=== PATIENT | female | born 1980 | race African-American/Black ===

== ENCOUNTER 2017-10-29 19:41 | Emergency (ER) | payer MEDICAID, OTHER ==
[~2017-10-29] VITALS: Ht 172.7 cm; Wt 87.0 kg
[2017-10-29] MEDS ORDERED: METOCLOPRAMIDE HCL 10MG/2ML VIAL IV STA (20:06)
[2017-10-29] MEDS ORDERED: KETOROLAC 30MG/ML VIAL IV STA (20:06)
[2017-10-29] MEDS ORDERED: SODIUM CHLORIDE 0.9% 1,000 ML IV ONE (20:06)
[2017-10-29] MEDS ORDERED: ONDANSETRON HCL 4MG/2ML VIAL IV STA (20:06)
[2017-10-29 20:36] LABS: BASOPHILS % 0.3 % (0.0-2.0); EOSINOPHILS % 0.1 % (0.0-5.0); HEMOGLOBIN. 14.2 g/dL (12.0-16.0); LYMPHOCYTES % 35.4 % (20.0-50.0); MEAN CORPUSCULAR HEMOGLOBIN 27.6 pg (28.0-32.0); MEAN CORPUSCULAR VOLUME 81.9 fL (81.0-99.0); MEAN PLATELET VOLUME 8.6 fl (7.4-10.4); MONOCYTES % 7.3 % (2.0-8.0); NEUTROPHILS % 56.9 % (40.0-76.0); PLATELET 220 x1000/uL (130-400); RED BLOOD CELL COUNT 5.13 mill/uL (4.2-5.4); RED CELL DISTRIBUTION WIDTH 13.8 % (11.6-14.6)
[2017-10-29 20:44] LABS: INR 1.1
[2017-10-29 20:46] LABS: CHLORIDE 109 mEq/L (98-107)
[2017-10-29 21:10] LABS: CLARITY URINE CLOUDY (CLEAR); COLOR URINE YELLOW (YELLOW); KETONES URINE NEGATIVE (NEGATIVE); LEUKOCYTE ESTERASE URINE NEGATIVE (NEGATIVE); NITRITE URINE NEGATIVE (NEGATIVE); OCCULT BLOOD URINE NEGATIVE (NEGATIVE); PH URINE 7.5 (4.5-8.0); PROTEIN URINE 1+ (NEGATIVE); SPECIFIC GRAVITY URINE 1.026 (1.005-1.030)
[2017-10-30] MEDS ORDERED: ONDANSETRON HCL 4MG/2ML VIAL IV SCH (00:30)
[2017-10-30] MEDS ORDERED: KETOROLAC 30MG/ML VIAL IV SCH (00:30)
[2017-10-30 06:02] VITALS: BP 97/56
== END 2017-10-30 06:15 | disposition home or self-care (01) ==
LOC: ER 19:41
DX: R10.9 Unspecified abdominal pain (principal); N83.201 Unspecified ovarian cyst, right side; Z88.8 Allergy status to other drugs, medicaments and biological substances; Z98.51 Tubal ligation status
CPT/HCPCS: 36415; 76830; 76856; 80053; 81003; 85025; 85610; 96361; 96374; 96375; 99285; J1885; J2405; J2765; J7030; Z7610

== ENCOUNTER 2021-03-28 01:00 | Emergency (ER) | payer OTHER ==
[~2021-03-28] VITALS: Ht 172.7 cm; Wt 90.0 kg
[2021-03-28 01:41] LABS: CLARITY URINE CLEAR (CLEAR); COLOR URINE YELLOW (YELLOW); KETONES URINE NEGATIVE (NEGATIVE); LEUKOCYTE ESTERASE URINE NEGATIVE (NEGATIVE); NITRITE URINE NEGATIVE (NEGATIVE); OCCULT BLOOD URINE 3+ (NEGATIVE); PROTEIN URINE NEGATIVE (NEGATIVE); SPECIFIC GRAVITY URINE 1.024 (1.005-1.030)
[2021-03-28 03:07] LABS: BASOPHILS % 0.2 % (0.0-2.0); EOSINOPHILS % 0.6 % (0.0-5.0); HEMATOCRIT. 38.8 % (36.0-48.0); HEMOGLOBIN. 12.7 g/dL (12.0-16.0); LYMPHOCYTES % 27.3 % (20.0-50.0); MEAN CORPUSCULAR HEMOGLOBIN 27.5 pg (28.0-32.0); MEAN CORPUSCULAR VOLUME 84.3 fL (81.0-99.0); MONOCYTES % 7.3 % (2.0-8.0); NEUTROPHILS % 64.6 % (40.0-76.0); PLATELET 193 x1000/uL (130-400); RED CELL DISTRIBUTION WIDTH 14.3 % (11.6-14.6)
[2021-03-28 03:14] LABS: CHLORIDE 111 mEq/L (98-107)
[2021-03-28 04:17] LABS: B-HCG QUANTITATIVE 698 mIU/mL (<3)
[2021-03-28 05:10] VITALS: BP 137/79
== END 2021-03-28 05:10 | disposition home or self-care (01) ==
LOC: ER 01:00
DX: O20.9 Hemorrhage in early pregnancy, unspecified (principal); Z3A.00 Weeks of gestation of pregnancy not specified; Z98.51 Tubal ligation status; Z91.041 Radiographic dye allergy status
CPT/HCPCS: 36415; 76830; 76856; 80053; 81003; 81025; 84702; 85025; 86850; 86900; 99284

== ENCOUNTER 2024-05-14 11:36 | Emergency (ER) | payer OTHER ==
[~2024-05-14] VITALS: Ht 177.8 cm; Wt 85.0 kg
[2024-05-14 11:38] VITALS: O2SAT 98
[2024-05-14 12:28] VITALS: BP 120/78; PULSE 74; RESP 18; TEMP 36.94740; O2SAT 98
== END 2024-05-14 12:32 | disposition home or self-care (01) ==
LOC: ER 11:36
DX: M79.672 Pain in left foot (principal); R20.2 Paresthesia of skin; Z98.51 Tubal ligation status; Z91.041 Radiographic dye allergy status; Z88.8 Allergy status to other drugs, medicaments and biological substances
CPT/HCPCS: 99281

== ENCOUNTER 2025-06-10 13:39 | Emergency (ER) | payer OTHER ==
[~2025-06-10] VITALS: Ht 172.7 cm; Wt 94.0 kg
[2025-06-10 13:44] VITALS: O2SAT 100
[2025-06-10 15:43] LABS: BASOPHILS % 0.1 % (0.0-2.0); EOSINOPHILS % 0.1 % (0.0-5.0); HEMATOCRIT. 39.8 % (36.0-48.0); HEMOGLOBIN. 13.0 g/dL (12.0-16.0); LYMPHOCYTES % 21.1 % (20.0-50.0); MEAN PLATELET VOLUME 9.5 fl (7.4-10.4); MONOCYTES % 6.7 % (2.0-8.0); NEUTROPHILS % 72.0 % (40.0-76.0); PLATELET 176 x1000/uL (130-400); RED BLOOD CELL COUNT 4.83 mill/uL (4.2-5.4); RED CELL DISTRIBUTION WIDTH 13.8 % (11.6-14.6)
[2025-06-10 15:51] LABS: CLARITY URINE CLEAR (CLEAR); COLOR URINE DARK YELLOW (YELLOW); SPECIFIC GRAVITY URINE 1.029 (1.005-1.030)
[2025-06-10 15:52] LABS: GLUCOSE URINE NEGATIVE (NEGATIVE); KETONES URINE TRACE (NEGATIVE); LEUKOCYTE ESTERASE URINE NEGATIVE (NEGATIVE); NITRITE URINE NEGATIVE (NEGATIVE); OCCULT BLOOD URINE TRACE (NEGATIVE); PH URINE 5.5 (4.5-8.0); PROTEIN URINE TRACE (NEGATIVE); UROBILINOGEN URINE 1.0 E.U./dL (0.2-1.0)
[2025-06-10 15:56] LABS: UREA NITROGEN BLOOD < 5 mg/dL (9-23)
[2025-06-10 15:57] LABS: CREATININE 0.9 mg/dL (0.6-1.0)
[2025-06-10 15:59] LABS: ASPARTATE AMINOTRANSFERASE 21 IU/L (<34); BILIRUBIN DIRECT 0.1 mg/dL (<=3.0); BILIRUBIN TOTAL 0.4 mg/dL (0.1-1.0); PROTEIN TOTAL 6.9 g/dL (6.0-8.3)
[2025-06-10] MEDS ORDERED: ONDANSETRON 4MG ODT PO ONE (16:00)
[2025-06-10 16:04] LABS: BACTERIA URINE 2+; RBC URINE 0-2 /hpf (0-2); SQUAMOUS EPITHELIAL CELL URINE 1+ /lpf (RARE/1+); WBC URINE 0-2 /hpf (0-2)
[2025-06-10 16:11] LABS: HCG SCREEN NEGATIVE
[2025-06-10] MEDS: ONDANSETRON 4MG ODT PO SCH (17:43)
[2025-06-10] MEDS: CEFTRIAXONE SODIUM 500MG VIAL IM ONE (18:10)
[2025-06-10] MEDS ORDERED: METR-167 MT (18:13)
[2025-06-10] MEDS ORDERED: ONDA-239 PO (18:13)
[2025-06-10] MEDS ORDERED: DOXY100C5 MT (18:13)
[2025-06-10 18:25] VITALS: BP 120/79; PULSE 71; RESP 15; TEMP 36.8; O2SAT 100
== END 2025-06-10 18:26 | disposition home or self-care (01) ==
LOC: ER 13:39
DX: N73.9 Female pelvic inflammatory disease, unspecified (principal); D25.9 Leiomyoma of uterus, unspecified; R11.0 Nausea; Z79.899 Other long term (current) drug therapy; Z88.8 Allergy status to other drugs, medicaments and biological substances; Z98.51 Tubal ligation status
CPT/HCPCS: 99285; 76700; 76830; 80076; 80048; 81003; 81025; 84703; 83690; 83735; 85025; 36415; 76856; 96372; Q0162; J0696